=== PATIENT | male | born 1980 | race Caucasian/White ===

== ENCOUNTER 2020-04-09 00:31 | Emergency (ER) | payer OTHER | END 2020-04-09 03:58 | disposition home or self-care (01) | LOC: ER1 00:31 | DX: S00.83XA Contusion of other part of head, initial encounter (principal); F17.210 Nicotine dependence, cigarettes, uncomplicated; W22.8XXA Striking against or struck by other objects, initial encounter | CPT/HCPCS: 87070; 87077; 87186; 87205; 99283 ==